=== PATIENT | female | born 1980 | race Two or more races ===

== ENCOUNTER 2023-06-07 19:11 | Emergency (ER) | payer OTHER ==
[~2023-06-07] VITALS: Ht 180.3 cm; Wt 168.7 kg
[2023-06-07] MEDS ORDERED: IBU600T PO (21:03)
[2023-06-07] MEDS ORDERED: CYCL-839 PO (21:03)
[2023-06-07] MEDS ORDERED: IBUPROFEN 800 MG TAB PO ONE (21:15)
[2023-06-08 00:05] VITALS: BP 140/90; PULSE 84; RESP 18; TEMP 98.3; O2SAT 99
== END 2023-06-08 00:09 | disposition home or self-care (01) ==
LOC: ER 19:11
DX: S13.9XXA Sprain of joints and ligaments of unspecified parts of neck, initial encounter (principal); S53.402A Unspecified sprain of left elbow, initial encounter; S43.402A Unspecified sprain of left shoulder joint, initial encounter; R03.0 Elevated blood-pressure reading, without diagnosis of hypertension; Z88.8 Allergy status to other drugs, medicaments and biological substances; V89.2XXA Person injured in unspecified motor-vehicle accident, traffic, initial encounter; Y93.89 Activity, other specified; Y92.89 Other specified places as the place of occurrence of the external cause; Y99.8 Other external cause status
CPT/HCPCS: 72040; 73030; 73060